=== PATIENT | female | born 1945 | race African-American/Black ===

== ENCOUNTER 2023-09-12 04:52 | Observation (INO) | payer SELFPAY ==
[2023-09-12 01:10] VITALS: BP 181/78
--- NOTE | 2023-09-12 01:20 | ED.GENMED ---
History of Present Illness
General
Chief Complaint: Breathing Problem
Source: patient
Exam Limitations: none
Time Seen by Provider: 09/12/23 01:06
Travel History
Have you had any contact with someone who has COVID-19?: Unable to Answer
Do you have any symptoms of coronavirus? Fever > 100 degrees, chills, cough, shortness of breath, sore throat, loss of taste or smell, muscle aches, or headache?: Unable to Answer
History of Present Illness
History of Present Illness:
This is a 77 year old female that is brought in by ambulance with c/o SOB. Patient states that she is homeless and tonight she couldn't breath. State that she was at [facility] 2 days ago. States that she is usually there every day. States
that she had chills, SOB and a headache. Denies any fever, chest pain, abd pain, nausea, vomiting, diarrhea, dizziness, urinary burning.
Past History
Past History
ED Past Medical History: Asthma, COPD and Other (Bronchitis, Ulcers, Glaucoma)
ED Past Surgical History: Orthopedic (Bilateral hip replacements)
Social History
Tobacco: Smoker
Alcohol: Occasional
Personal:
Living: homeless
Review of Systems
Review of Systems
All Other Systems: ROS reviewed and negative except as documented in HPI and ROS
Constitutional: Reports chills; Denies fever
EENT: Reports no symptoms
Respiratory: Reports trouble breathing; Denies cough
Cardiac: Reports no symptoms; Denies chest pain
ABD/GI: Reports no symptoms; Denies abdominal pain, nausea, vomiting or diarrhea
: Reports no symptoms; Denies dysuria, frequency or urgency
Musculoskeletal: Reports no symptoms
Skin: Reports no symptoms
Neurological: Reports headache; Denies dizzy
Psychiatric: Reports no symptoms
Phy Exam
General Physical Exam
General Presentation: mild distress
General age: appears stated age
General Skin: warm and dry
General Habitus: elderly
General Mental: alert
General Hydration: appears well hydrated
ENT Exam
ENT Exam: TM's normal, pharynx normal and neck supple
Eye Exam
Eye Exam: EOMI
Cardiovascular Exam
Cardiovascular Exam: regular rate/rhythm, no murmur and normal peripheral pulses
Pulmonary Exam
Pulmonary Exam: no rales, chest non tender, no crackles, no rhonchi, no cough and other (exp wheezing throughout)
Gastrointestinal Exam
Gastrointestinal Exam: normal bowel sounds, non tender, soft, no organomegaly, no pulsatile mass and non distended
Musculoskeletal Exam
Musculoskeletal Exam: full ROM and edema (Slight lower leg nonpitting edema)
Skin Exam
Skin Exam: normal color, warm/dry, no rash and no petechia
Psychiatric Exam
Psychiatric Exam: normal mood/affect
Scores
Heart Failure Risk
Heart Failure Risk Score: Not Applicable
Course
Orders/Labs/Results
Orders:
Orders
09/12/23 01:19
Dexamethasone Sod Phosphate [Decadron] 20 mg IV NOW STA
Ipratropium/Albuterol Sulfate [Duoneb] 3 ml INH R NOW ONE
CR Chest - 2 Views Urgent
Comment:
Reason For Exam: SOB
09/12/23 01:31
Albuterol Nebs [Ventolin Nebules] 2.5 mg .ROUTE .STK-MED ONE
Dexamethasone Sod Phosphate [Decadron] 20 mg .ROUTE .STK-MED ONE
09/12/23 01:50
Complete Blood Count/With Diff Urgent
Comprehensive Metabolic Panel Urgent
09/12/23 02:18
Prednisone [Deltasone] 50 mg PO NOW STA
09/12/23 02:33
Prednisone [Deltasone] 50 mg PO NOW STA
Abnormal Lab Results
09/12/23
01:50
WBC 12.1 H 10^3/uL
(4.8-10.8)
RBC 3.44 L 10^6/uL
(4.20-5.40)
Hgb 9.3 L g/dL
(12.0-16.0)
Hct 28.4 L %
(37.0-47.0)
MCHC 32.7 L g/dL
(33.0-37.0)
RDW 16.6 H %
(11.5-14.5)
Abs Immat Gran (auto) 0.3 H 10^3/uL
(0-0.05)
Absolute Neuts (auto) 7.6 H 10^3/uL
(1.4-6.5)
Absolute Monos (auto) 0.9 H 10^3/uL
(0.1-0.6)
Immature Gran % 2.1 H %
(0-0.5)
BUN 25 H mg/dl
(7-17)
Glucose 106 H mg/dl
(70-99)
Total Protein 6.0 L g/dl
(6.3-8.2)
09/12/23 01:50
09/12/23 01:50
Leukocytosis, H/H low. Dehydration. Glucose nonfasting. Total protein low.
Vital Signs
Initial and Last Documented VS:
Initial Vital Signs
Temp Pulse Resp BP Pulse Ox
97.9 F 85 20 181/78 95
09/12/23 01:10 09/12/23 01:10 09/12/23 01:10 09/12/23 01:10 09/12/23 01:10
Last Documented Vital Signs
Temp Pulse Resp BP Pulse Ox
97.9 F 83 20 156/88 96
09/12/23 01:10 09/12/23 02:33 09/12/23 02:33 09/12/23 02:33 09/12/23 02:33
MDM/Problems Addressed
Differential Diagnosis Includes:
Asthma exacerbation. COPD,
MDM/Problems Addressed:
This is a 77 year old female that comes in by ambulance with c/o SOB. States that she has asthma and COPD and tonight she couldn't breath. States that she is homeless and [place]
Will check labs. chest x-ray, give Duo and Steroids.
Back into see patient. Patient has inspiratory and Exp wheezing throughout. Will admit patient. Hospitalist notified.
Chronic conditions affecting care: COPD and Asthma
Acute Exacerbation and/or Progression of Chronic Illness: COPD and Asthma
*Pulse Oximetry
Patient hypoxic: no
Comment: 100% on room air
*EKG
Interpreted by ED Provider?: NA
Rate: EKG- N/A
*Case Making Machine Operator Interpretation
Rate: Case Making Machine Operator- N/A
*Critical Care Note
Total Time (30-74mins, 75-104mins- exclusive of procedures): Not Applicable
ED Attending Note
-
Portions of this chart may have been created with voice recognition software.� Occasional wrong word or��sound alike� substitutions may have occurred due to the inherent limitations of voice recognition software.
Discharge Plan
Departure
Patient Disposition: Admit
Date of Disposition: 09/12/23
Time of Disposition: 02:57
Admit to: Med/Surg
Presentation/result/management discussed w/ accepting MD/DO: Hospitalist
Patient with high blood pressure during this ER visit?: Yes
Condition: Good
Covid-19: Not Applicable
Discharge Problem:
Asthma exacerbation
Interventions
Interventions:
*Risk Screen - Suicide Last Done: 09/12/23 01:10
*General Assessment Last Done: 09/12/23 01:10
*Neglect/Abuse Screening Last Done: 09/12/23 01:10
ED- Fall Risk Assessment Last Done: 09/12/23 01:57
*ED COVID-19 Vaccine History Last Done: 09/12/23 01:57
ED- Cardiac Assessment Last Done: 09/12/23 01:57
ED- Pulmonary Assessment Last Done: 09/12/23 01:57
[2023-09-12] MEDS: DUONEB 3 ML INH (01:33)
[2023-09-12 02:09] LABS: % Basophils 0.6 % (0-2); % Eosinophils 3.3 % (0-6); % Immature Granulocytes 2.1 % (0-0.5); % Lymphocytes 23.7 % (20.5-51.1); % Monocytes 7.6 % (1.7-9.3); % Neutrophils 62.7 % (42.2-75.2); Absolute Basophils 0.1 10^3/uL (0-0.2); Absolute Eosinophils 0.4 10^3/uL (0-0.7); Absolute Immature Granulocytes 0.3 10^3/uL (0-0.05); Absolute Lymphocytes 2.9 10^3/uL (1.2-3.4); Absolute Monocytes 0.9 10^3/uL (0.1-0.6); Absolute Neutrophils 7.6 10^3/uL (1.4-6.5); Hematocrit 28.4 % (37.0-47.0); Hemoglobin 9.3 g/dL (12.0-16.0); Mean Corp Hgb Conc. 32.7 g/dL (33.0-37.0); Mean Corpuscular Volume 82.6 fL (81.0-99.0); Mean Platelet Volume 9.4 fL (7.4-10.4); Nucleated Red Blood Cells % 0 %; Platelet Count 374 10^3/uL (130-400); Red Blood Cell Count 3.44 10^6/uL (4.20-5.40); Red Cell Dist. Width 16.6 % (11.5-14.5); White Blood Cell Count 12.1 10^3/uL (4.8-10.8)
[2023-09-12] MEDS: DELTASONE 50 MG PO (02:18)
[2023-09-12 02:23] LABS: ALT (SGPT) 33 U/L (0-35); AST (SGOT) 28 U/L (14-36); Albumin 3.5 g/dl (3.5-5.0); Alkaline Phosphatase 77 U/L (38-126); Blood Urea Nitrogen 25 mg/dl (7-17); Carbon Dioxide 27 mmol/L (22-30); Chloride 102 mmol/L (98-107); Glucose 106 mg/dl (70-99); Potassium 3.9 mmol/L (3.5-5.1); Sodium 138 mmol/L (135-145); Total Bilirubin 0.3 mg/dl (0.2-1.3); eGFR > 60.00
[2023-09-12 02:33] VITALS: BP 156/88
--- NOTE | 2023-09-12 03:16 | HPS.HSE ---
Family Physician
-
Family Physician:
Chief Complaint
-
SOB
History of Present Illness
Patient is a 77y F with PMH significant for asthma / COPD who presents to ED via ambulance complaining of SOB. History obtained entirely from ED record as patient will not answer questions.
Patient was brought in by ambulance for complaint of SOB. She is reportedly homeless at present and has apparently been at [facility] [place] every day for the past several days. ED reports complaints of chills, SOB and headache. We have no
prior records here.
Patient will not answer questions at the time of my exam. When attempting to perform history / exam, patient simply thrashes and 'grunts'.
Medical History
Past Medical History
Past Medical History: Reports Other
Additional Past Medical History:
Asthma / COPD
No other known history.
Past Surgical History: Reports Other
Additional Past Surgical History:
None known
Social History
Unable to obtain full social history at this time due to: Other (Patient refuses to interact with examiner.)
Family History
Family History: Unable to Obtain (Patient refuses to interact with examiner.)
Allergies / Home Medications
Allergies reflects when Allergies were last updated in [facility].
Home Medications with original date entered in [facility]
Allergy/Medication List:
Unknown. Patient refuses to interact with examiner.
If medication reconciliation has not been performed, why?: Medication List N/A (Patient refuses to interact with examiner.)
Review of Systems
-
Unable to obtain full review of systems at this time due to: Other (Patient refuses to interact with examiner.)
Physical Exam
Vital Signs
Vital Signs
Temp Pulse Resp BP Pulse Ox
97.9 F 83 20 156/88 96
09/12/23 01:10 09/12/23 02:33 09/12/23 02:33 09/12/23 02:33 09/12/23 02:33
Physical Exam
General: Other (Patient is a 77y F resting comfortably. She is in no distress. She is breathing smoothly and easily. There is no audible wheezing on what limited exam could be performed.)
Cardiac: S1/S2 and Regular Rhythm
Musculoskeletal: No Edema
Laboratory Results
-
09/12/23 01:50
09/12/23 01:50
Laboratory Results
Total Bilirubin 0.3 mg/dl (0.2-1.3) 09/12/23 01:50
AST 28 U/L (14-36) 09/12/23 01:50
ALT 33 U/L (0-35) 09/12/23 01:50
Alkaline Phosphatase 77 U/L (38-126) 09/12/23 01:50
Impression/Plan
-
A/P: Patient is a 77y F with PMH reportedly significant for 'asthma' and COPD who presents to ED complaining of SOB.
Asthma / COPD
Dyspnea
- Observe overnight for further evaluation and treatment.
- There is no significant wheezing, increased WOB, hypoxemia, etc at the time of my examination.
- CXR with poor inspiratory effort. No focal infiltrates. Perhaps some increase interstitial markings, but difficult to assess as patent would not remove significant amount of jewelry prior to the examination.
- Would hold on further systemic steroids for now.
- Continue nebs ATC and PRN.
- Inhaled budesonide BID.
- Follow for any new / worsening symptoms.
- Case Management evaluation for discharge plan.
- High risk for return to hospital given social conditions / homelessness.
DVT Prophylaxis: Lovenox
Code Status: Full
--- NOTE | 2023-09-12 07:13 | EDRN ---
this RN entered the pts room to introduce this RN's self, check on the pt, obtain vital signs, and obtain AM labs, the pt stated to this RN, 'I don't want any of that shit, i'm ready to get the fuck out of here, you're not touching me, you're not
poking me, you're not taking any vital crap i don't need it i want to leave now', this RN attempted to explain to the pt that the pt has been admitted to the hospital and that vital signs are checked often while in the hospital and that routine AM
labs have been ordered by the provider, the pt stated, 'I don't give a shit, you're not touching me with nothing, i've been poked enough and i don't need to be here', the pt is lying in stretcher in the lowest position, side rails up x2, all aaron
within reach, HOB slightly elevated, this RN will continue to monitor the pt and will notify provider that the pt wants to leave
--- NOTE | 2023-09-12 07:31 | EDRN ---
this RN entered the pts room again and spoke with the pt about staying, this RN witnessed the pt putting her shoes on and gathering her belongings together, this RN tried to explain to the pt that she was admitted for asthma and that close
monitoring is required and that vitals and labs should be checked to assure that the pt is okay, the pt stated to this RN, 'I am not staying here and i'm not signing nothing neither, i don't need any of this shit i just needed to sleep, i am ready
to go now', this RN asked the pt if she would mind speaking to the doctor first, the pt then stated to this RN, 'I'm not talking to anyone i don't need to i can leave if i want to, i don't have to sign anything that i don't want to, it's my body,
you can't keep me here and i can leave any time that i want', this RN notified the provider Dr. Taylor
--- NOTE | 2023-09-12 15:02 | W.DCSUMMARY ---
Discharge Summary
Discharge Data
Date of Admission: 09/12/23
Date of Discharge: 09/12/23
-
Pending Results: No
Hospital Course
Principal Diagnosis:
Shortness of breath
Chronic Diagnoses:�
Asthma and COPD
Consultations:�
None
Procedures:�
None
Clinical course:�
This is a 77y F with PMH significant for asthma / COPD who presented to ED via ambulance complaining of shortness of breath.�
Patient refused to answer questions to the admitting physician.
She was reportedly homeless and has apparently been at [facility] every day for the past several days.
She refused to be examined.
She left the hospital AGAINST MEDICAL ADVICE in the morning prior to my assessment.
Discharge Plan
-
Patient Disposition: Against Medical Advice
Referrals:
UNKNOWN - PT NOT,INTERVIEWE [Family Provider] -
Prescriptions:
No Action
Unobtainable
0
Discharge Orders:
Discharge Patient (As Directed); Ordered 09/12/23
Ordered By: Aisha Taylor
Discharge Date and Time
Discharge Date/Time: 09/12/23 11:14
== END 2023-09-12 11:14 | disposition left against medical advice (07) ==
LOC: ED 04:52
PROVIDERS: Clinical Nurse Specialist Family Health; ADMITTING PHYSICIAN Hospitalist; ATTENDING PHYSICIAN Internal Medicine; EMERGENCY PHYSICIAN Student in an Organized Health Care Education/Training Program
DX: J44.89 Other specified chronic obstructive pulmonary disease (principal); F17.200 Nicotine dependence, unspecified, uncomplicated; Z53.29 Procedure and treatment not carried out because of patient's decision for other reasons; Z59.00 Homelessness unspecified
CPT/HCPCS: 71046; 80053; 85025; 94640; 96374; 99284; G0378